=== PATIENT | female | born 1995 | race Two or more races ===

== ENCOUNTER 2023-12-21 20:31 | Emergency (ER) | payer OTHER ==
[~2023-12-21] VITALS: Ht 170.2 cm; Wt 136.0 kg
[2023-12-21 21:05] VITALS: BP 143/102; PULSE 106; RESP 16; O2SAT 97
== END 2023-12-21 21:33 | disposition left against medical advice (07) ==
LOC: ER 20:31
DX: R00.2 Palpitations (principal)
CPT/HCPCS: 93005